=== PATIENT | female | born 1985 | race African-American/Black ===

== ENCOUNTER 2017-12-16 21:41 | Inpatient (IN) | END 2017-12-17 14:54 | disposition home or self-care (01) | DRG 780 ==

== ENCOUNTER 2017-12-25 17:56 | Emergency (ER) | END 2017-12-26 01:50 | disposition home or self-care (01) ==

== ENCOUNTER 2018-01-05 20:55 | Emergency (ER) | END 2018-01-06 01:38 | disposition home or self-care (01) ==

== ENCOUNTER 2018-01-19 01:42 | Emergency (ER) | END 2018-01-19 07:03 | disposition home or self-care (01) ==

== ENCOUNTER 2018-05-24 20:25 | Outpatient (CLI) | END 2018-05-25 01:23 | disposition home or self-care (01) ==

== ENCOUNTER 2018-06-14 01:11 | Outpatient (CLI) | END 2018-06-14 05:55 | disposition home or self-care (01) ==

== ENCOUNTER 2018-06-23 01:18 | Emergency (ER) | END 2018-06-23 04:48 | disposition home or self-care (01) ==

== ENCOUNTER 2018-06-23 01:45 | Outpatient (CLI) | END 2018-06-23 02:34 | disposition home or self-care (01) ==

== ENCOUNTER 2018-06-23 20:50 | Inpatient (IN) | END 2018-06-27 11:22 | disposition home or self-care (01) | DRG 833 ==

== ENCOUNTER 2018-06-29 09:24 | Outpatient (CLI) | END 2018-06-29 11:15 | disposition home or self-care (01) ==

== ENCOUNTER 2018-06-29 11:13 | Emergency (ER) | END 2018-06-29 12:02 | disposition home or self-care (01) ==

== ENCOUNTER 2018-07-06 17:43 | Emergency (ER) | payer OTHER ==
[~2018-07-06] VITALS: Wt 67.9 kg
[~2018-07-06 17:43] MED LIST: CALC600T24 PO; FERR325T5 PO; PREN-93 PO; PROP50TA2 PO
[2018-07-06] MEDS ORDERED: LIDOCAINE/MYLANTA 40 ML BTL PO STA (18:10)
[2018-07-06] MEDS ORDERED: BELLADONNA/PHENOBARBITAL TAB PO STA (18:10)
[2018-07-06] MEDS ORDERED: ALBUTEROL 0.083% (NEB) 2.5 MG/3 ML AMP HHN STA (18:10)
--- NOTE | 2018-07-06 18:27 | ERD ---
ER Documentation Chief Complaint Chief Complaint cp, ear ringing, luke, 33 wks preg c/o back pressure, see note HPI 32-year-old woman who is about 35 weeks presents with sharp nonexertional nonradiating constant chest pain beginning sometime this afternoon with associated shortness of breath. She does have a history of asthma and states she has some mild wheezing as well. She also has a history of right upper extremity deep vein thrombosis that was successfully treated with Eliquis last year. She denies history of pulmonary embolism. She denies cough, no fevers or chills, no calf or leg swelling. ROS All systems reviewed and are negative except as per history of present illness. Medications Home Meds Active Scripts Prednisone* (Prednisone*) 20 Mg Tab, 40 MG PO DAILY for 4 Days, TAB Prov:CLEO RIVERA MD 07/06/18 Albuterol Sulfate* (Proair HFA*) 8.5 Gm Hfa.aer.ad, 2 PUFF INH Q6H PRN for WHEEZING AND SOB, #1 INHALER Prov:CLEO RIVERA MD 07/06/18 Propylthiouracil* (Propylthiouracil*) 50 Mg Tablet, 25 MG PO TID, #120 TAB 8 Refills Prov:CLEO ROCKWELL MD 06/27/18 Reported Medications Calcium Carbonate* (Calcium Carbonate*) 600 MG Ca Tab, 600 MG PO, TAB 06/14/18 Ferrous Sulfate (Ferrous Sulfate) 325 Mg Tablet.dr, 325 MG PO 06/14/18 Vit No.124/Iron/FA ( Vitamin Tablet) 1 Each Tablet, 1 EACH PO, TAB 06/14/18 Allergies Allergies: Coded Allergies: No Known Allergy (Unverified , 12/16/17) PMhx/Soc History of asthma, hyperthyroidism, right upper extremity DVT in the past that was treated with Eliquis History of Surgery: No (TRACHEA SURGERY 07/14/2017) Anesthesia Reaction: No Hx Neurological Disorder: No Hx Respiratory Disorders: No (ASTHMA) Hx Cardiac Disorders: No Hx Psychiatric Problems: No Hx Miscellaneous Medical Probl: Yes (hyperthyroidism, HTN) Hx Alcohol Use: Yes (BEFORE ) Hx Substance Use: No Hx Tobacco Use: No Smoking Status: Former smoker FmHx Family History: No diabetes Physical Exam Vitals Vital Signs Date Temp Pulse Resp B/P (MAP) Pulse Ox O2 O2 Flow FiO2 Time Delivery Rate 07/06/18 98.1 102 16 116/86 98 Room Air 18:19 (96) Per nurse's records Physical Exam Const: No acute distress, oxygen saturation 100% on room air Head: Atraumatic Eyes: Normal Conjunctiva ENT: Normal External Ears, Nose and Mouth. Neck: Full range of motion. No meningismus. Resp: Clear to auscultation bilaterally Cardio: Tachycardic and regular Abd: Soft, non tender, non distended. Skin: No petechiae or rashes Back: No midline or flank tenderness Ext: No cyanosis, or edema. Calves bilaterally symmetrical, no Homans sign, no popliteal cords sign distal pulses equal bilateral Neur: Awake and alert x3, no focal deficits or facial asymmetry, pupils equal round reactive to light Psych: Normal Mood and Affect Result Diagram: 07/06/18181907/06/181819 Results 24 hrs Laboratory Tests Test 07/06/18 18:20 07/06/18 18:21 White Blood Count 8.5 10^3/ul Red Blood Count 4.23 10^6/ul Hemoglobin 11.7 g/dl Hematocrit 35.0 % Mean Corpuscular Volume 82.7 fl Mean Corpuscular Hemoglobin 27.7 pg Mean Corpuscular Hemoglobin Concent 33.4 g/dl Red Cell Distribution Width 14.2 % Platelet Count 219 10^3/UL Mean Platelet Volume 10.7 fl Immature Granulocytes % 1.200 % Neutrophils % 59.8 % Lymphocytes % 26.9 % Monocytes % 10.9 % Eosinophils % 0.7 % Basophils % 0.5 % Nucleated Red Blood Cells % 0.0 /100WBC Immature Granulocytes # 0.100 10^3/ul Neutrophils # 5.1 10^3/ul Lymphocytes # 2.3 10^3/ul Monocytes # 0.9 10^3/ul Eosinophils # 0.1 10^3/ul Basophils # 0.0 10^3/ul Nucleated Red Blood Cells # 0.0 10^3/ul Blood Gas Specimen Source Blood arterial Arterial Blood Date Drawn 07/06/2018 7:30:55 PM Arterial Blood pH (Temp corrected) 7.490 Arterial Blood pCO2 (Temp correct) 27.0 mmhg Arterial Blood pO2 (Temp corrected) 117.8 mmHG Arterial Blood HCO3 20.1 mmol/L Arterial Blood Base Excess -2.0 mmol/L Arterial Blood Oxygen Saturation 98.4 mmHG Rafael Test N/A Arterial Blood Gas Puncture Site LB Arterial Blood Carboxyhemoglobin 0.1 % Arterial Blood Methemoglobin 0.3 % Oxyhemoglobin Percent 98.0 % Blood Gas Temperature 37.0 C Blood Gas Actual Respiration Rate 16 Blood Gas Modality ROOM AIR FiO2 21.0 % Blood Gas Critical Value Read Back Suri YEPEZ Blood Gas Notified Whom BL Blood Gas Notified Time 07/06/2018 7:41:47 PM Sodium Level 136 mmol/L Potassium Level 4.5 mmol/L Chloride Level 107 mmol/L Carbon Dioxide Level 21 mmol/L Anion Gap 8 Blood Urea Nitrogen 11 mg/dl Creatinine 0.51 mg/dl Est Glomerular Filtrat Rate mL/min > 60 mL/min Glucose Level 85 mg/dl Calcium Level 10.1 mg/dl Total Bilirubin 0.1 mg/dl Direct Bilirubin 0.00 mg/dl Indirect Bilirubin 0.1 mg/dl Aspartate Amino Transf (AST/SGOT) 23 IU/L Alanine Aminotransferase (ALT/SGPT) 12 IU/L Alkaline Phosphatase 745 IU/L Troponin I 0.036 ng/ml Total Protein 7.5 g/dl Albumin 3.9 g/dl Globulin 3.60 g/dl Albumin/Globulin Ratio 1.08 Lipase 45 U/L B-Type Natriuretic Peptide < 11 PG/ML Current Medications Medications Dose Sig/Debbi Start Time Status Last (Trade) Ordered Route PRN Stop Time Admin Dose Reason Admin 40 ml ONCE STAT 07/06/18 DC 07/06/18 Miscellaneous PO 18:10 07/06/18 18:28 Medication 18:13 (Gi Cocktail (2)) Belladonna/ 2 tab ONCE STAT 07/06/18 DC 07/06/18 Phenobarbital PO 18:10 07/06/18 18:28 () 18:13 Albuterol 5 mg ONCE STAT 07/06/18 DC (Proventil HHN 18:10 07/06/18 0.083% (Neb)) 18:13 Prednisone 40 mg ONCE ONCE 07/06/18 DC (Prednisone) PO 19:30 07/06/18 19:31 Procedures/MDM IV line was established patient was placed on cafeteria monitor rhythm strip rev ealed a sinus tachycardia at 120 bpm with upright P and T waves. Patient was afebrile EKG performed, read by me revealed a sinus tachycardia at 119 bpm, normal axis, narrow QRS complex, no concerning ST elevations or depressions noted. Patient consented to chest x-ray as I feel this is an important part of today's workup given her current condition and past medical history. One AP view of the chest performed, read by me reveals no acute infiltrates, normal mediastinum, sharp costophrenic and cardiac borders, no air under the diaphragm. Otherwise unremarkable chest x-ray. CBC was normal, electrolytes normal function tests reveal elevated alkaline phosphatase, troponin negative, BNP low. ABG on room air revealed a good PaO2, and mild respiratory alkalosis. I administered a GI cocktail as well as prednisone 40 mg p.o. and albuterol 5 mg via nebulizer. Patient's PO2 and oxygen saturation is perfect, she looks well, her tachycardia has resolved and she has no signs or symptoms of pulmonary embolism. I recommended follow-up with her PMD and wrapping checker. Differential diagnoses considered, included but not limited to acute coronary syndrome, pulmonary embolism, aortic dissection, abdominal aortic aneurysm, sepsis, stroke, meningitis, encephalitis, pneumonia, appendicitis, chol ecystitis, bowel obstruction, pyelonephritis, nephrolithiasis, cystitis, as well as metabolic, hematologic, and electrolyte abnormalities. As well as abscess, cellulitis, fractures, and dislocations. Patient feels much better at this time, and vital signs are normal, symptoms have improved. I did give strict instructions to return to the ED if symptoms continue or worsen, patient will otherwise follow-up with primary care physician. Patient understood instructions and agreed to plan. Disclaimer: Inadvertent spelling and grammatical errors are likely due to EHR/dictation software use and do not reflect on the overall quality of patient care. Also, please note that the electronic time recorded on this note does not necessarily reflect the actual time of the patient encounter. Departure Diagnosis: Primary Impression: Chest pain Chest pain type: unspecified Qualified Codes: R07.9 - Chest pain, unspecified Additional Impressions: Asthma Asthma severity: moderate Asthma persistence: persistent Asthma complication type: with acute exacerbation Qualified Codes: J45.41 - Moderate persistent asthma with (acute) exacerbation Third trimester Condition: Good CLEO RIVERA MD Jul 06, 2018 18:27
[2018-07-06] MEDS ORDERED: PRED20TA PO (19:22)
[2018-07-06] MEDS ORDERED: ALBU8.5H8 INH (19:22)
[2018-07-06] MEDS ORDERED: predniSONE 20 MG TAB PO ONE (19:30)
[2018-07-06 22:37] VITALS: BP 119/88; PULSE 103; RESP 20
== END 2018-07-06 22:38 | disposition home or self-care (01) ==
LOC: E/R 17:43
DX: O99.89 Other specified diseases and conditions complicating pregnancy, childbirth and the puerperium (principal); R07.9 Chest pain, unspecified; O99.513 Diseases of the respiratory system complicating pregnancy, third trimester; O10.013 Pre-existing essential hypertension complicating pregnancy, third trimester; R06.02 Shortness of breath; Z3A.33 33 weeks gestation of pregnancy
CPT/HCPCS: 36415; 36600; 71045; 80053; 81001; 82803; 83690; 83880; 84484; 85025; 93005; 94664; J7512; Z7502; Z7610

== ENCOUNTER 2018-07-20 16:34 | Emergency (ER) | payer SELFPAY ==
[~2018-07-20] VITALS: Ht 165.1 cm; Wt 70.0 kg
[~2018-07-20 16:34] MED LIST changes: +ALBU8.5H8 INH; +PRED20TA PO
[2018-07-20 16:40] VITALS: BP 136/68; PULSE 120; RESP 18; Ht 165.1 cm; Wt 70.0 kg
[2018-07-20] MEDS ORDERED: ACET500C5 PO (23:03)
== END 2018-07-20 17:46 | disposition left against medical advice (07) ==
LOC: FTE 16:34
DX: Z53.21 Procedure and treatment not carried out due to patient leaving prior to being seen by health care provider (principal)

== ENCOUNTER 2018-07-20 19:38 | Emergency (ER) | payer OTHER ==
[~2018-07-20] VITALS: Ht 165.1 cm; Wt 70.0 kg
[2018-07-20 19:44] VITALS: Ht 165.1 cm; Wt 70.0 kg
[2018-07-20] MEDS ORDERED: BUPIVACAINE 0.25% (MPF) 10 ML 10 ML VIAL INJ ONE (21:30)
[2018-07-20] MEDS ORDERED: BUPIVACAINE 0.25% (MPF) 30 ML INJ INJ ONE (21:30)
--- NOTE | 2018-07-20 21:31 | ERD ---
ER Documentation Chief Complaint Chief Complaint 37 WKS PREG WITH CHOPRA & REQUEST FOR TSH DRAW HPI 32-year-old female who is approximately 37 weeks present ED with headache since yesterday. Patient states that she had similar headaches in the past, however previous headache usually resolves after sleeping. Her headache has not resolved today. She has not taking any pain medications at home. She was cleared by labor delivery prior to be seen in the ED. Patient states that she was given Tylenol later delivery about 1 hour ago. However the had not help with her headache. Patient has history of hyperthyroidism, is taking propylthiouracil. She was prescribed 50 mg half tab daily, however she has been taking 1 tab daily. She only discovered earlier today with she went to refill her medications. She was told by the pharmacist to get her thyroid level checked. She would like to have it checked today. Patient reports frequently feeling hot, and occasional palpitations. Denies excessive fatigue. Denies fever or chills. Denies blurry vision, nausea, or vomiting. ROS All systems reviewed and are negative except as per history of present illness. Medications Home Meds Active Scripts Acetaminophen* (Tylophen*) 500 Mg Capsule, 1 CAP PO Q6H PRN for PAIN AND OR ELEVATED TEMP, #20 CAP Prov:RONI PAT SURGICAL ENDOSCOPIST 07/20/18 Albuterol Sulfate* (Proair HFA*) 8.5 Gm Hfa.aer.ad, 2 PUFF INH Q6H PRN for WHEEZING AND SOB, #1 INHALER Prov:CLEO RIVERA MD 07/06/18 Propylthiouracil* (Propylthiouracil*) 50 Mg Tablet, 25 MG PO TID, #120 TAB 8 Refills Prov:CLEO ROCKWELL MD 06/27/18 Reported Medications Calcium Carbonate* (Calcium Carbonate*) 600 MG Ca Tab, 600 MG PO, TAB 06/14/18 Ferrous Sulfate (Ferrous Sulfate) 325 Mg Tablet.dr, 325 MG PO 06/14/18 Vit No.124/Iron/FA ( Vitamin Tablet) 1 Each Tablet, 1 EACH PO, TAB 06/14/18 Discontinued Scripts Prednisone* (Prednisone*) 20 Mg Tab, 40 MG PO DAILY for 4 Days, TAB Prov:CLEO RIVERA MD 07/06/18 Allergies Allergies: Coded Allergies: No Known Allergy (Unverified , 12/16/17) PMhx/Soc History of Surgery: No (TRACHEA SURGERY 07/14/2017) Anesthesia Reaction: No Hx Neurological Disorder: No Hx Respiratory Disorders: No (ASTHMA) Hx Cardiac Disorders: No Hx Psychiatric Problems: No Hx Miscellaneous Medical Probl: Yes (hyperthyroidism, HTN) Hx Alcohol Use: Yes (BEFORE ) Hx Substance Use: No Hx Tobacco Use: No Smoking Status: Never smoker Physical Exam Vitals Vital Signs Date Temp Pulse Resp B/P (MAP) Pulse Ox O2 O2 Flow FiO2 Time Delivery Rate 07/20/18 97.4 87 18 138/75 96 19:44 (96) Physical Exam General: Well-developed, well-nourished, conscious and coherent, in no distress Skin: Warm and dry without rash, good texture and turgor Head: Normocephalic without evidence of trauma Eyes: Sclera and conjunctivae normal; pupils equal, round, and reactive to light; extraocular movements are intact. Slight exophthalmos Neck: Supple without meningismus or adenopathy. Bilateral upper trapezius muscle tension Chest: Normal AP diameter. Good expansion without retractions. Nontender. Lungs are clear to auscultate bilaterally with good tidal volume Heart: Regular rate and rhythm. No murmur, rub, or gallops heard Abdomen: Gravid abdomen Extremities: Full range of motion. Good strength bilaterally. No erythema, ecchymosis, or edema. Peripheral pulses are intact. Sensation intact Neuro: Alert and oriented 4, GCS 15. Results 24 hrs Laboratory Tests Test 07/20/18 21:33 Thyroid Stimulating Hormone (TSH) < 0.015 MIU/L Current Medications Medications Dose Sig/Debbi Start Time Status Last (Trade) Ordered Route PRN Stop Time Admin Dose Reason Admin Bupivacaine 10 ml ONCE ONCE 07/20/18 Cancel HCl INJ 21:30 (Marcaine 07/20/18 21:31 0.25% (Mpf) 10 ml) Bupivacaine 10 ml ONCE ONCE 07/20/18 DC HCl INJ 21:30 (Marcaine 07/20/18 21:31 0.25% (Mpf) 30 ml) Procedures/MDM Well-appearing 32-year-old female who is 37 weeks presents the ED with headache. Patient was cleared by labor delivery beat or arrival in the ED. She was given Tylenol 1 hour prior, and reports no improvement of headache. Procedure note: Nerve block Type: Bilateral paraspinous cervical nerve block Nerve block performed by la. 1.5 mL of each 0.25% bupivacaine is injected into bilateral paraspinous cervical region. Total number of injection: 2. Patient reports immediate leave of headache after the injection. Patient has history of hyperthyroidism, and was told to have her TSH level [facility] today. Her TSH is < 0.015. It appears that her medication dosing is not adequate to manage hyperthyroidism. Patient is symptomatic with occasional palpitations and heat intolerance. Patient advised to follow-up with her PCP in 1-2 days to get her medications adjusted. Patient appears well, stable for discharge and outpatient management. Medical decision making shared with patient and family. Education provided to patient and family. Patient and family expressed understanding of the plan. Medications on discharge: Tylenol. Follow-up: Primary care provider in 2-3 days or return to ED if worse. Disclaimer: Inadvertent spelling and grammatical errors are likely due to EHR/dictation software use and do not reflect on the overall quality of patient care. Also, please note that the electronic time recorded on this note does not necessarily reflect the actual time of the patient encounter. Departure Diagnosis: Primary Impression: Headache Headache type: tension-type Headache chronicity pattern: acute headache Intractability: not intractable Qualified Codes: G44.209 - Tension-type headache, unspecified, not intractable Additional Impression: Hyperthyroidism Condition: RONI Carlos NP Jul 20, 2018 21:31
[2018-07-20] MEDS ORDERED: ACET500C5 PO (23:03)
[2018-07-20 23:27] VITALS: BP 115/69; PULSE 80; RESP 18
== END 2018-07-20 23:29 | disposition home or self-care (01) ==
LOC: FTE 19:38
DX: O26.893 Other specified pregnancy related conditions, third trimester (principal); O99.283 Endocrine, nutritional and metabolic diseases complicating pregnancy, third trimester; O99.52 Diseases of the respiratory system complicating childbirth; O10.013 Pre-existing essential hypertension complicating pregnancy, third trimester; E03.9 Hypothyroidism, unspecified; R51 Headache; Z3A.37 37 weeks gestation of pregnancy
CPT/HCPCS: 84443; Z7502; Z7610; 99283

== ENCOUNTER 2018-07-31 19:03 | Inpatient (IN) | payer OTHER ==
[~2018-07-31] VITALS: Ht 157.5 cm; Wt 69.1 kg
[2018-07-31 19:00] VITALS: Ht 157.5 cm; Wt 69.1 kg
[~2018-07-31 19:03] MED LIST changes: +ACET500C5 PO; -PRED20TA PO
[2018-07-31 19:21] VITALS: BP 118/75; PULSE 85; RESP 18
[2018-07-31] MEDS ORDERED: LACTATED RINGER'S 1,000 ML IV PRN (21:40)
[2018-07-31] MEDS ORDERED: METHYLERGONOVINE 0.2 MG INJ IM PRN (22:00)
[2018-07-31] MEDS ORDERED: OXYTOCIN 30 UNITS/LR 500 ML IV SCH ×3 (22:00)
[2018-07-31] MEDS ORDERED: LIDOCAINE 1% (MPF) 30 ML INJ INJ PRN (22:00)
[2018-07-31] MEDS ORDERED: MISOPROSTOL 200 MCG TAB PR PRN (22:00)
[2018-07-31] MEDS ORDERED: ALBUTEROL HFA 8 GM INHALER INH PRN (22:00)
[2018-07-31] MEDS ORDERED: BUTORPHANOL 2 MG INJ IV PRN (22:00)
[2018-07-31] MEDS ORDERED: OXYTOCIN 30 UNITS/LR 500 ML IV PRN (22:00)
[2018-07-31] MEDS ORDERED: AMPICILLIN 2 GM/NS (PMX) 100 ML IV ONE (22:00)
[2018-07-31] MEDS ORDERED: BUTORPHANOL 1 MG INJ IV PRN (22:00)
[2018-07-31] MEDS ORDERED: IBUPROFEN 600 MG TAB PO PRN (22:00)
[2018-07-31] MEDS ORDERED: CARBOPROST 250 MCG INJ IM PRN (22:00)
[2018-07-31] MEDS: LACTATED RINGER'S 1,000 ML IV SCH (22:07)
[2018-07-31] MEDS: PROPYLTHIOURACIL 50 MG TAB PO SCH (23:02)
--- NOTE | 2018-07-31 23:48 | TRIAGE ---
OB Triage Datetime Report Generated by CPN: 07/31/2018 23:47 Datetime: 07/31/2018 23:13 Labor Evaluation Frequency: 3-6 Monitor Mode: External Duration (sec)2399: 60-100 Quality: Moderate Pattern: Normal: <= 5 Contractions in 10 Minutes Resting Tone [place]: Relaxed Interventions: Side to Side Heart Rate FHR Baseline Rate: 125 Monitor Mode: External US Variability: Moderate 6-25 bpm Accelerations: Prolonged Decelerations: Late Category: Category II Datetime: 07/31/2018 22:43 Labor Evaluation Frequency: 2-5 Monitor Mode: External Duration (sec)2399: 60-90 Quality: Moderate Pattern: Normal: <= 5 Contractions in 10 Minutes Resting Tone [place]: Relaxed Heart Rate FHR Baseline Rate: 125 Monitor Mode: External US Variability: Moderate 6-25 bpm Accelerations: 15X15 Decelerations: None Category: Category I Datetime: 07/31/2018 22:02 Assessment Type: Admission Assessment Maternal Assessment Level of Consciousness: Fully Conscious DTR's/Clonus: DTRs 2+; No Clonus Headache: Denies Blurred Vision: No Respiratory Effort: Unlabored; Regular Rhythm; Equal Expansion Breath Sounds, Left: Clear and Equal Breath Sounds, Right: Clear and Equal Nausea/Vomiting: Denies RUQ Epigastric Pain: Denies Lower Extremities Edema: None Degree: None Upper Extremities Edema: None Degree: None Facial Edema: None Temperature Route: Oral Fall Risk Assessment History of Falling: (0) No Secondary Diagnosis: (0) No Ambulatory Aid: (0) Bedrest/Nurse Assist IV Therapy: (20) Yes Gait: (0) Normal/Bedrest/Immobile Mental Status: (0) Oriented to Own Ability Fall Score: 20 Fall Risk Score Definition: No Risk: No action required Pain Assessment Pain Scale: 9 Pain Presence: Intermittent Pain Type: Contraction Pain Location: Abdomen; Back Pain Relief Measures: Comfort Measures Datetime: 07/31/2018 22:00 Time of Arrival: 07/31/2018 21:53 EGA: 39.1 Arrived By: Ambulatory Arrived From: triage Datetime: 07/31/2018 21:53 Stage of : Labor Monitor Mode: External Monitor Mode: External US Comments: monitor on, pt in FB8 Datetime: 07/31/2018 21:45 Labor Evaluation Frequency: 2-4 Monitor Mode: External Duration (sec)2399: 50-100 Quality: Moderate Pattern: Normal: <= 5 Contractions in 10 Minutes Resting Tone [place]: Relaxed Heart Rate FHR Baseline Rate: 130 Monitor Mode: External US Variability: Moderate 6-25 bpm Accelerations: 15X15 Decelerations: None Category: Category I Datetime: 07/31/2018 21:25 Vaginal Exam Dilatation (cms): 2.0 Effacement (%): 50 Station: -3 Exam By: DR. OCAMPO Membrane Status: Intact Cervix, Consistency: Soft Cervix, Position: Posterior Datetime: 07/31/2018 21:00 Labor Evaluation Frequency: 2-7 Monitor Mode: External Duration (sec)2399: 40-130 Quality: Moderate Pattern: Normal: <= 5 Contractions in 10 Minutes Resting Tone [place]: Relaxed Heart Rate FHR Baseline Rate: 135 Monitor Mode: External US Variability: Moderate 6-25 bpm Accelerations: Prolonged Decelerations: None Category: Category I Datetime: 07/31/2018 20:16 Monitor Mode: External Datetime: 07/31/2018 20:11 Vaginal Exam Dilatation (cms): 0.0 Effacement (%): 0 Station: -3 Exam By: AZY K RN Cervix, Consistency: Soft Datetime: 07/31/2018 20:00 Labor Evaluation Frequency: IRREGULAR Monitor Mode: External Duration (sec)2399: 40-110 Quality: Moderate Pattern: Normal: <= 5 Contractions in 10 Minutes Resting Tone [place]: Relaxed Heart Rate FHR Baseline Rate: 140 Monitor Mode: External US Variability: Moderate 6-25 bpm Accelerations: 15X15 Decelerations: None Category: Category I Datetime: 07/31/2018 19:30 Time of Arrival: 07/31/2018 19:00 EGA: 39.1 Arrived By: Wheelchair Arrived From: Home Chief Complaint: LEAKING CLEAR SINCE 1000, UC'S SINCE 1700, PAIN 9/10 Movement: Present Contractions: Occasional Time Contractions Began: 07/31/2018 17:00 Contractions: 15 MINUTES Rupture of Membranes: Unsure Vaginal Bleeding: None Vaginal Discharge: Present Recent Sexual Intercouse: Denies Abdominal Trauma: Not Applicable Patient Complaints: Contractions Time Provider Notified: 07/31/2018 21:05 Provider Notified: Reiche Initial Plan: EFM, SVE Datetime: 07/31/2018 19:21 Stage of : OB Triage Assessment Type: Triage Maternal Assessment Level of Consciousness: Fully Conscious Headache: Denies Blurred Vision: No Respiratory Effort: Unlabored; Regular Rhythm; Equal Expansion Breath Sounds, Left: Clear and Equal Breath Sounds, Right: Clear and Equal Nausea/Vomiting: Denies RUQ Epigastric Pain: Denies Facial Edema: None Temperature Route: Oral Fall Risk Assessment History of Falling: (0) No Secondary Diagnosis: (0) No Ambulatory Aid: (0) Bedrest/Nurse Assist IV Therapy: (0) No Gait: (0) Normal/Bedrest/Immobile Mental Status: (0) Oriented to Own Ability Fall Score: 0 Fall Risk Score Definition: No Risk: No action required Monitor Mode: External Monitor Mode: External US Pain Assessment Pain Scale: 9 Pain Presence: Intermittent Pain Type: Contraction Pain Location: Abdomen Datetime: 07/20/2018 17:48 Fall Score: 0 Fall Risk Score Definition: No Risk: No action required Datetime: 07/20/2018 17:46 EGA: 37.4 Datetime: 06/29/2018 09:42 Fall Score: 0 Fall Risk Score Definition: No Risk: No action required Datetime: 06/29/2018 09:40 EGA: 34.4 Datetime: 06/27/2018 07:34 Fall Score: 20 Fall Risk Score Definition: No Risk: No action required Datetime: 06/26/2018 07:30 Fall Score: 0 Fall Risk Score Definition: No Risk: No action required Datetime: 06/25/2018 19:25 Fall Score: 20 Fall Risk Score Definition: No Risk: No action required Datetime: 06/25/2018 08:40 Fall Score: 20 Fall Risk Score Definition: No Risk: No action required Datetime: 06/24/2018 20:20 Fall Score: 20 Fall Risk Score Definition: No Risk: No action required Datetime: 06/23/2018 23:01 Fall Score: 0 Fall Risk Score Definition: No Risk: No action required Datetime: 06/23/2018 23:00 EGA: 33.5 Datetime: 06/23/2018 17:05 Fall Score: 0 Fall Risk Score Definition: No Risk: No action required Datetime: 06/23/2018 17:01 EGA: 33.5 Datetime: 06/23/2018 02:09 EGA: 33.5 Datetime: 06/14/2018 01:27 EGA: 32.3 Datetime: 06/14/2018 01:25 Fall Score: 0 Fall Risk Score Definition: No Risk: No action required Datetime: 05/24/2018 20:36 EGA: 29.3 Datetime: 05/24/2018 20:25 Fall Score: 0 Fall Risk Score Definition: No Risk: No action required
[2018-08-01] MEDS: AMPICILLIN 1 GM/NS (PMX) 50 ML IV SCH ×5 (02:41→18:04)
[2018-08-01] MEDS: LACTATED RINGER'S 1,000 ML IV SCH ×4 (04:17→18:03)
[2018-08-01] MEDS: PROPYLTHIOURACIL 50 MG TAB PO SCH ×4 (09:00→22:32)
--- NOTE | 2018-08-01 09:59 | PREAC ---
Date/Time of Note Date/Time of Note DATE: 08/01/18 TIME: 09:58 Anesthesia Eval and Record Evaluation Time Pre-Procedure Interview DATE: 08/01/18 TIME: 09:58 Age 32 Sex female NPO: 8 hrs Preoperative diagnosis labor pain Planned procedure epidural Past Medical History Past Medical History: Includes Cardio: HTN Endo: Hyperthyroid Pulm: Asthma Surgery & Anesthesia Issues No known issue Meds Anticoagulation: No Beta Margie within 24 hr: No Reason Beta Margie not given: Pt. not on B-Margie Active Scripts Albuterol Sulfate* (Proair HFA*) 8.5 Gm Hfa.aer.ad, 2 PUFF INH Q6H PRN for WHEE ZING AND SOB, #1 INHALER Prov:CLEO RIVERA MD 07/06/18 Propylthiouracil* (Propylthiouracil*) 50 Mg Tablet, 25 MG PO TID, #120 TAB 8 Refills Prov:CLEO ROCKWELL MD 06/27/18 Reported Medications Calcium Carbonate* (Calcium Carbonate*) 600 MG Ca Tab, 600 MG PO, TAB 06/14/18 Ferrous Sulfate (Ferrous Sulfate) 325 Mg Tablet.dr, 325 MG PO 06/14/18 Vit No.124/Iron/FA ( Vitamin Tablet) 1 Each Tablet, 1 EACH PO, TAB 06/14/18 Discontinued Scripts Acetaminophen* (Tylophen*) 500 Mg Capsule, 1 CAP PO Q6H PRN for PAIN AND OR ELEVATED TEMP, #20 CAP Prov:RONI PAT CENSUS TAKER 07/20/18 Current Medications Lactated Ringer's 1,000 ml @ 125 mls/hr Q8H IV Last administered on 08/01/18at 09:41; Admin Dose 125 MLS/HR; Start 07/31/18 at 21:40 Ampicillin 50 ml @ 100 mls/hr Q4H IV Last administered on 08/01/18at 09:41; Admin Dose 100 MLS/HR; Start 08/01/18 at 02:00 Butorphanol Tartrate (Stadol) 1 mg Q2H PRN IV .PAIN; Start 07/31/18 at 22:00 Butorphanol Tartrate (Stadol) 2 mg Q2H PRN IV .PAIN; Start 07/31/18 at 22:00 Lidocaine (Xylocaine 1% (Mpf)) 30 ml ONCE PRN INJ .EPISIOTOMY; Start 07/31/18 at 22:00 Oxytocin/Lactated Ringer's 500 ml @ 500 mls/hr ONCE POST IV ; Start 07/31/18 at 22:00 Oxytocin/Lactated Ringer's 500 ml @ 125 mls/hr POST IV ; Start 07/31/18 at 22:00 Ibuprofen (Motrin) 600 mg ONCE PRN PO .PAIN 1-5; Start 07/31/18 at 22:00 Lactated Ringer's 1,000 ml @ 2,000 mls/hr Q30M PRN IV .ANESTHESIA; Start 07/31/18 at 21:40 Oxytocin/Lactated Ringer's 500 ml @ 0 mls/hr ONCE PRN IV .VAGINAL BLEEDING; Start 07/31/18 at 22:00 Methylergonovine Maleate (Methergine) 0.2 mg ONCE PRN IM .VAGINAL BLEEDING; Start 07/31/18 at 22:00 Carboprost Tromethamine (Hemabate) 250 mcg ONCE PRN IM .VAGINAL BLEEDING; Start 07/31/18 at 22:00 Misoprostol (Cytotec) 1,000 mcg ONCE PRN MN .VAGINAL BLEEDING; Start 07/31/18 at 22:00 Oxytocin/Lactated Ringer's 500 ml @ 0 mls/hr FOR AUGMENTATION IV Last administered on 07/31/18at 22:43; Admin Dose 1 MLS/HR; Start 07/31/18 at 22:00 Albuterol (Ventolin Hfa) 2 puff PRN PRN INH SHORTNESS OF BREATH; Start 07/31/18 at 22:00 Propylthiouracil (Ptu) 25 mg TID PO Last administered on 08/01/18at 09:00; Admin Dose 25 MG; Start 07/31/18 at 23:00 Meds reviewed: Yes Allergies Coded Allergies: No Known Allergy (Unverified , 07/31/18) Allergies Reviewed: Yes Labs/Studies Labs Reviewed: Reviewed by anesthesiologist Result Diagram: 07/31/18 2220 Laboratory Tests 07/31/18 22:20 Blood Bank Test 07/31/18 22:20 Antibody Screen NEGATIVE Blood Type O POSITIVE Rh Immune Globulin Candidate NO test: Positive Studies: ECG (n/a), CXR (n/a) Pre-procedure Exam Last vitals Vital Signs Date Temp Pulse Resp B/P (MAP) Pulse Ox O2 O2 Flow FiO2 Time Delivery Rate 07/31/18 98.4 85 18 118/75 Room Air 19:21 (89) Airway: Adequate mouth opening Mallampati: Mallampati I Teeth: Normal Lung: Normal Heart: Normal ASA Physical Status ASA physical status: 2 Emergency: None Planned Anesthetic Neuraxial: Epidural Pre-operative Attestations Prior to commencing anesthesia and surgery, the patient was re-evaluated, there was verification of: *The patient's identity *The results of appropriate recent lab work and preoperative vital signs *The above evaluation not changing prior to induction *Anesthetic plan, risk benefits, alternative and complications discussed with patient/family; questions answered; patient/family understands, accepts and wishes to proceed. MARY LANDEROS MD Aug 01, 2018 09:59
[2018-08-01] MEDS ORDERED: FENTAnyl 2MCG/ML-ROPIV 0.2% 100 ML ONE (10:16)
--- NOTE | 2018-08-01 10:20 | PAC ---
Date/Time of Note Date/Time of Note DATE: 08/01/18 TIME: 10:19 Post-Anesthesia Notes Post-Anesthesia Note Last documented vital signs Vital Signs Date Temp Pulse Resp B/P (MAP) Pulse Ox O2 O2 Flow FiO2 Time Delivery Rate 07/31/18 98.4 85 18 118/75 Room Air 19:21 (89) Activity: WNL Respiratory function: WNL Cardiovascular function: WNL Mental status: Baseline Pain reasonably controlled: Yes Hydration appropriate: Yes Nausea/Vomiting absent: No MARY LANDEROS MD Aug 01, 2018 10:20
[2018-08-01] MEDS ORDERED: NALOXONE (0.4 MG/ML) INJ IV PRN (10:30)
[2018-08-01] MEDS ORDERED: FENTAnyl 2MCG/ML-ROPIV 0.2% 100 ML BAG EPI SCH (10:30)
[2018-08-01] MEDS ORDERED: ONDANSETRON 4 MG INJ IV PRN (10:30)
[2018-08-01] MEDS ORDERED: DIPHENHYDRAMINE 50 MG INJ IV PRN (10:30)
--- NOTE | 2018-08-01 20:04 | LDN ---
Date/Time of Note Date/Time of Note DATE: 08/01/18 TIME: 20:01 Delivery Summary of normal female x2 tight cord Weeks of Gestation 39w2d Placenta Delivered: Spontaneously Meconium: none Episiotomy: No Perineal laceration: 0 Anesthesia type: Epidural Estimated blood loss: 120 Sponge & Needle done & correct: Yes All needle counts correct: Yes Any foreign bodies felt in the: No Delivery Information Sex Sex: female Apgars 1 Minute: 8 5 Minute: 9 Suctioning Nose & mouth suctioned at jada: Yes Delee suction performed: No Umbilical Cord Umbilical cord with: 3 Vessels Cord presentations: nuchal cord Nuchal cord present X: 2 Cord Blood was obtained: Yes Mother & Baby Disposition Disposition Mom & Baby to Maternity; Good: Yes Mom transferred to: Other Baby to NICU: No () ZAIN YANEZ MD Aug 01, 2018 20:04
[2018-08-01] MEDS ORDERED: PROPYLTHIOURACIL 50 MG TAB PO ONE (20:30)
--- NOTE | 2018-08-01 20:30 | HP ---
Date/Time of Note Date/Time of Note DATE: 08/01/18 TIME: 20:13 OB - History Hx of Present Free Text/Dictation 32y.o [id number] triage with c/o uC's q3-6min with intact membrane according to note tracing was CAT II with late deceleration on admission. Initial VE 2/50/-3 GBS not known She is also known to have chronic hypertension but on admission normotensive. 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 admitted for expectant management. Chief Complaint: uc's Estimated Due Date: Aug 06, 2018 : 9 Para: 4 Spontaneous : 1 Therapeutic : 3 Care: Limited Care Ultrasounds: Normal mid trimester US Obstetrical Complications: None Medical Complications: Respiratory, Other (asthma, hyperthyroidism) Past Family/Social History * Past Medical, Surgical, Family and Obstetric Histories reviewed from chart. Blood Type: O+ Rubella: immune RPR/VDRL: Negative GBS Status: Unknown HBsAG: Negative OB Admission Exam Vital Signs Vital Signs Vital Signs Date Temp Pulse Resp B/P (MAP) Pulse Ox O2 O2 Flow FiO2 Time Delivery Rate 07/31/18 98.4 85 18 118/75 Room Air 19:21 (89) Physical Exam HEENT: WNL Heart: Rhythm Normal Lungs: Clear, Equal Abdomen: WNL Extremities: Normal Reflexes: Normal Cervical Dilatation: 2cm Effacement: 50% Station: -3 Membranes: Intact Amniotic Fluid: Unevaluable Heart Rate: 120's Accelerations: Accelerations Present Decelerations: Late Decelarations Varibility: Moderate Contractions on Admission: < 5 Minutes Apart Intensity: Mild Last 72 hours Lab Results CBC & BMP 07/31/18 22:20 OB Assessment/Plan Other Assessment: IUP 39w1d in early labor hyperthyroidism nx of chronic HTN asthma UDS pos for marijuana Plan: Expectant Management, Other (ampicillin for unknown GBS status, augmentation) ZAIN YANEZ MD Aug 01, 2018 20:23
[2018-08-01 20:55] VITALS: BP 137/94; PULSE 96; RESP 19
[2018-08-01] MEDS: LACTATED RINGER'S 1,000 ML IV* SCH (21:57)
[2018-08-01] MEDS ORDERED: CARBOPROST 250 MCG INJ IM PRN (22:00)
[2018-08-01] MEDS ORDERED: BENZOCAINE 20% 56 ML SPRAY TOP PRN (22:00)
[2018-08-01] MEDS ORDERED: MISOPROSTOL 200 MCG TAB PR PRN (22:00)
[2018-08-01] MEDS ORDERED: ZOLPIDEM 5 MG TAB PO PRN (22:00)
[2018-08-01] MEDS ORDERED: OXYCODONE/ASPIRIN (4.88/325) TAB PO PRN (22:00)
[2018-08-01] MEDS ORDERED: METHYLERGONOVINE 0.2 MG INJ IM PRN (22:00)
[2018-08-01] MEDS ORDERED: WITCH HAZEL/GLYCERIN PAD PR PRN (22:00)
[2018-08-01] MEDS ORDERED: LANOLIN HPA 1 PKT TOP PRN (22:00)
[2018-08-01] MEDS ORDERED: OXYTOCIN 30 UNITS/LR 500 ML IV PRN (22:00)
[2018-08-01] MEDS: SENNA/DOCUSATE NA (8.6MG/50MG) TAB PO SCH (22:32)
[2018-08-01] MEDS: OXYCODONE/ASPIRIN (4.88/325) TAB PO PRN (22:44)
[2018-08-01] MEDS ORDERED: PROPYLTHIOURACIL 50 MG TAB PO SCH (23:00)
[2018-08-01] MEDS: IBUPROFEN 600 MG TAB PO SCH (23:28)
[2018-08-02] VITALS: BP 119/70; PULSE 84; RESP 18
[2018-08-02 04:00] VITALS: BP 116/76; PULSE 88; RESP 18
[2018-08-02] MEDS: OXYCODONE/ASPIRIN (4.88/325) TAB PO PRN ×3 (04:38→20:52)
[2018-08-02] MEDS: IBUPROFEN 600 MG TAB PO SCH ×3 (05:20→17:27)
[2018-08-02] MEDS: LACTATED RINGER'S 1,000 ML IV* SCH (05:57)
[2018-08-02 07:20] VITALS: BP 113/78; PULSE 80; RESP 16
[2018-08-02] MEDS: PROPYLTHIOURACIL 50 MG TAB PO SCH ×3 (09:13→20:52)
[2018-08-02] MEDS: SENNA/DOCUSATE NA (8.6MG/50MG) TAB PO SCH ×2 (09:13→20:52)
--- NOTE | 2018-08-02 13:29 | NUR ---
JOSE G NOTE: CONSULT Reviewed the Winifred's chart and discussed the case with RN, Maribel in PPI. Then met with the MoB and the FoB, Braydon Carney, : 11/09/1990, , to assess. Both MoB and FoB were receptive. The couple has been living at the [facility] at [address] [place] [address], in [place]. They have been receiving Motel Vouchers through the [place] [employer]. They plan to return there upon discharge. Winifred stated they have a car seat and a bassinet. A family or friend will transport at discharge. Winifred is a recipient of WIC. She is . Her current UDS is negative however in the past (06/23/18, 05/24/18, and 12/16/17 the UDS were positive for marijuana. Winifred stated she has hx of asthma and she is a recipient of SSI. She denied receiving morgan aide and food stamps. Winifred and Davion have 4 other children who have been living with the father's brother in [place] (they were born in 2002, 2004, 2006, 2009). SW provided supportive intervention and discussed medi-Tre and WIC for the baby. Please see later notes for baby's DC disposition. Addendum: 08/02/18 at 1347 by JOSÉ MIGUEL VALERIO LCSW Amended: Links added.
--- NOTE | 2018-08-02 13:48 | NUR ---
SW NOTE: HIGHLY CONFIDENTIAL - [facility] REPORT MoB has a negative UDS for this visit. She has had positive UDS in the last trimester. Limited PNC and ER Panel admission for this delivery. Four other children live in [place] with the FoB's brother. This job specification writer called the [facility] Hotline [phone] to consult. Spoke with Leandro Rees. A report was generated Ref#: [id number]. It will be serviced by the [facility] office ( ) by 08/03 which is the anticipated discharge date.
--- NOTE | 2018-08-02 14:07 | NUR ---
FLU VACCINE GIVEN PER ORDERS.
[2018-08-02 15:12] VITALS: BP 121/81; PULSE 83; RESP 17
--- NOTE | 2018-08-02 18:17 | NUR ---
EOSS: VSS. AMBULATING AND VOIDING. SHOWERED TODAY. TRYING TO BREAST FEED BUT BABY IS VERY SLEEPY. STARTED PT WITH BREAST PUMP TO HELP STIMULATE MILK PRODUCTION. GOOD BONDING SEEN WITH THE BABY.
[2018-08-02 20:00] VITALS: BP 143/86; PULSE 86; RESP 18
[2018-08-03] MEDS: IBUPROFEN 600 MG TAB PO SCH ×3 (00:11→11:15)
[2018-08-03 04:00] VITALS: BP 130/82; PULSE 77; RESP 17
--- NOTE | 2018-08-03 05:33 | NUR ---
EOSS: VSS. PT UP AD MAHI. PT DID NOT WANT TO PUMP THIS SHIFT. RN AT BEDSIDE FOR 2 BREAST FEEDS, ONE BABY WAS VERY SLEEPY AND THE OTHER THE BABY LATCHED RIGHTON AND BEGAN TO SUCK. PT STATED 2 MORE BREAST FEEDS WITH GOOD RESULTS.
[2018-08-03 07:30] VITALS: BP 118/66; PULSE 66; RESP 18
[2018-08-03] MEDS ORDERED: DIPHTH/TET/ACEL PERTUSS (ADULT) 0.5 ML VIAL IM* ONE (09:00)
[2018-08-03] MEDS: PROPYLTHIOURACIL 50 MG TAB PO SCH ×2 (09:17→12:11)
[2018-08-03] MEDS: SENNA/DOCUSATE NA (8.6MG/50MG) TAB PO SCH (09:18)
--- NOTE | 2018-08-03 10:50 | NUR ---
SW NOTE: DCFS F/U AND DC PLANNING Mr. Jones of [facility] in [place] ([phone]) evaluated at bedside this a.m. Called and discussed the baby's discharge disposition with Mr. Jones. He stated he has access to the family history with DCFS. He stated he was the assigned child support case officer to this family 9-10 years ago. This newswriter discussed the FoB/MoB were asking for additional food tray for the FoB and per MoB she did not qualify for food stamps because she is an SSI recipient. This newswriter wanted to ascertain the MoB's diet was not compromised as she is . Mr. Jones stated he will provide the parents with food bank resources. The baby may be discharged to the parents when medically cleared and DCFS will f/u at the motel.
--- NOTE | 2018-08-03 12:20 | QN ---
Documentation Comment Late Entry Note 08/02/2018 PPD#1 is stable afebrile tolerates diet No VB +BM +voids Vs stable Gen NAD Abd soft NT ND Genitalia No vlood at perineum --->Discharge plan tomorrow JEREMIAH REDD M.D. Aug 03, 2018 12:20
--- NOTE | 2018-08-03 12:21 | QN ---
Documentation Comment PPD#2 is stable afebrile tolerates diet No VB +BM +voids Vs stable Gen NAD Abd soft NT ND Genitalia No blood at perineum --->Discharge plan tomorrow JEREMIAH REDD M.D. Aug 03, 2018 12:21
--- NOTE | 2018-08-03 12:22 | DS ---
Date/Time of Note Date/Time of Note DATE: 08/03/18 TIME: 12:21 Discharge Summary Admission/Discharge Info Admit Date/Time Jul 31, 2018 at 21:25 Discharge Date/Time 08/03/2018 Discharge Diagnosis Patient Condition: Good Hospital Course uneventful Home Meds Active Scripts Albuterol Sulfate* (Proair HFA*) 8.5 Gm Hfa.aer.ad, 2 PUFF INH Q6H PRN for WHEEZING AND SOB, #1 INHALER Prov:CLEO RIVERA MD 07/06/18 Propylthiouracil* (Propylthiouracil*) 50 Mg Tablet, 25 MG PO TID, #120 TAB 8 Refills Prov:CLEO ROCKWELL MD 06/27/18 Reported Medications Ferrous Sulfate (Ferrous Sulfate) 325 Mg Tablet.dr, 325 MG PO 06/14/18 Vit No.124/Iron/FA ( Vitamin Tablet) 1 Each Tablet, 1 EACH PO, TAB 06/14/18 Discontinued Reported Medications Calcium Carbonate* (Calcium Carbonate*) 600 MG Ca Tab, 600 MG PO, TAB 06/14/18 Discontinued Scripts Acetaminophen* (Tylophen*) 500 Mg Capsule, 1 CAP PO Q6H PRN for PAIN AND OR ELEVATED TEMP, #20 CAP Prov:RONI PAT NP 07/20/18 Primary Care Provider [facility] JEREMIAH REDD M.D. Aug 03, 2018 12:22
--- NOTE | 2018-08-03 13:51 | NUR ---
PATIENT DC'D HOME IN STABLE COND VIA WHEELCHAIR WITH BABY VIA TAXI VOUCHER. DISCHARGE INST GIVEN AND PT VERBALIZED UNDERSTANDING OF ALL INFO GIVEN AND ALL QUESTIONS ANSWERED. Addendum: 08/03/18 at 1352 by ROME PENA RN Amended: Links added.
== END 2018-08-03 13:32 | disposition home or self-care (01) | DRG 807 ==
LOC: L-D 19:03 → OBT 19:03 → L-D 21:25 → PP1 08-01 20:49
PROVIDERS: ADMIT Obstetrics & Gynecology; ATTEND Obstetrics & Gynecology
PROC: 10E0XZZ Delivery of Products of Conception, External Approach (ICD-10-PCS; principal; 2018-08-01)
PROC: 3E033VJ Introduction of Other Hormone into Peripheral Vein, Percutaneous Approach (ICD-10-PCS; 2018-08-01)
DX: O99.284 Endocrine, nutritional and metabolic diseases complicating childbirth (principal); Z37.0 Single live birth; O69.81X0 Labor and delivery complicated by cord around neck, without compression, not applicable or unspecified; Z3A.39 39 weeks gestation of pregnancy
CPT/HCPCS: 62319; 80053; 80307; 84112; 84439; 84443; 84481; 85025; 85610; 85730; 86592; 86850; 86900; 86901; 87340; 90686; G0463; J0290; J2590; J3010; J7120

== ENCOUNTER 2018-12-13 19:33 | Emergency (ER) | payer OTHER ==
[~2018-12-13] VITALS: Ht 157.5 cm; Wt 68.2 kg
[~2018-12-13 19:33] MED LIST changes: -ACET500C5 PO; -CALC600T24 PO
[2018-12-13 20:11] VITALS: Ht 157.5 cm; Wt 68.2 kg
[2018-12-13] MEDS ORDERED: IBUPROFEN 600 MG TAB PO ONE (21:30)
[2018-12-13] MEDS ORDERED: OXYCODONE/ACETAMINOPHEN (5/325) TAB PO ONE (21:30)
[2018-12-13] MEDS ORDERED: SOD CHLORIDE 0.9% 500 ML IV STA (22:30)
[2018-12-13] MEDS ORDERED: PIPER-TAZO 3.375 GM IV (PMX) 100 ML IVPB STA (22:30)
[2018-12-14] MEDS ORDERED: morphine 4 MG/ML VIAL IV STA (00:28)
[2018-12-14] MEDS ORDERED: ONDANSETRON 4 MG INJ IV STA (00:28)
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
[2018-12-14 04:18] VITALS: BP 135/96; PULSE 16; RESP 16
== END 2018-12-14 04:21 | disposition short-term general hospital (02) ==
LOC: E/R 19:33
DX: H05.20 Unspecified exophthalmos (principal); I10 Essential (primary) hypertension; J45.909 Unspecified asthma, uncomplicated; R51 Headache; R40.2142 Coma scale, eyes open, spontaneous, at arrival to emergency department; R40.2362 Coma scale, best motor response, obeys commands, at arrival to emergency department; R40.2252 Coma scale, best verbal response, oriented, at arrival to emergency department
CPT/HCPCS: 36415; 70450; 70486; 80053; 81001; 81025; 83690; 84703; 85025; 96374; 96375; J2270; J2405; J2543; J7040; Z7502; Z7610

== ENCOUNTER 2019-03-15 11:53 | Emergency (ER) | payer OTHER ==
[~2019-03-15] VITALS: Ht 170.2 cm; Wt 63.0 kg
[~2019-03-15 11:53] MED LIST changes: -FERR325T5 PO; +NITR-58 PO; -PREN-93 PO
[2019-03-15 11:57] VITALS: Ht 170.2 cm; Wt 63.0 kg
[2019-03-15] MEDS ORDERED: SOD CHLORIDE 0.9% 1,000 ML IV STA (12:37)
[2019-03-15 19:27] VITALS: BP 136/66; PULSE 89; RESP 18
== END 2019-03-15 19:28 | disposition home or self-care (01) ==
LOC: E/R 11:53
DX: O99.281 Endocrine, nutritional and metabolic diseases complicating pregnancy, first trimester (principal); E05.90 Thyrotoxicosis, unspecified without thyrotoxic crisis or storm; J45.909 Unspecified asthma, uncomplicated; O99.511 Diseases of the respiratory system complicating pregnancy, first trimester; R00.0 Tachycardia, unspecified; Z3A.12 12 weeks gestation of pregnancy
CPT/HCPCS: 36415; 80048; 81001; 82962; 84439; 84443; 85025; 93005; J7030; Z7502; Z7610